=== PATIENT | male | born 1985 ===

== ENCOUNTER 2019-01-18 05:24 | Emergency (ER) | payer SELFPAY ==
[2019-01-18 05:35] VITALS: BP 124/77; PULSE 83; RESP 16; TEMP 98.7; O2SAT 98
--- NOTE | 2019-01-18 05:48 | ED PDOC ---
HPI: Psych/Substance Abuse Time Seen by Provider: 01/18/19 05:34 Chief Complaint (Nursing): Alcohol Ingestion Chief Complaint (Provider): Alcohol Ingestion History Per: Patient History/Exam Limitations: no limitations Onset/Duration Of Symptoms: Mins Current Symptoms Are (Timing): Better Additional Complaint(s): Patient is a 33 y/o male with no significant PMHx who had been drinking and passed out in a diner. EMS picked up the patient who is now wide awake. Patient admits to drinking. Patient states he [place] away and just wants to return home. Patient has not medical complaints at this time. PCP: None Past Medical History Reviewed: Historical Data, Nursing Documentation, Vital Signs Vital Signs: Last Vital Signs Temp 98.7 F 01/18/19 05:31 Pulse 83 01/18/19 05:31 Resp 16 01/18/19 05:31 BP 124/77 01/18/19 05:31 Pulse Ox 98 01/18/19 05:31 Primary Care Provider: FAMILY PROVIDER,NO - Medical History PMH: No Chronic Diseases - Surgical History Surgical History: No Surg Hx - Family History Family History: States: No Known Family Hx - Social History Alcohol: > 2 Drinks/Day - Allergies Allergies/Adverse Reactions: Allergies Allergy/AdvReac Type Severity Reaction Status Date / Time No Known Allergies Allergy Verified 01/18/19 05:34 Review of Systems ROS Statement: Except As Marked, All Systems Reviewed And Found Negative Physical Exam - Reviewed Nursing Documentation Reviewed: Yes Vital Signs Reviewed: Yes - Physical Exam Appears: Positive for: No Acute Distress Head Exam: Positive for: ATRAUMATIC, NORMAL INSPECTION, NORMOCEPHALIC Skin: Positive for: Normal Color, Warm, DRY Eye Exam: Positive for: EOMI, Normal appearance, PERRL Neck: Positive for: Normal, Painless ROM, Supple Cardiovascular/Chest: Positive for: Regular Rate, Rhythm. Negative for: Murmur Respiratory: Positive for: Normal Breath Sounds. Negative for: Respiratory Distress Gastrointestinal/Abdominal: Positive for: Normal Exam, Soft. Negative for: Tenderness Back: Positive for: Normal Inspection. Negative for: L CVA Tenderness, R CVA Tenderness Extremity: Positive for: Normal ROM. Negative for: Pedal Edema, Deformity Neurological/Psych: Positive for: Awake, Alert, Oriented (x3), Other (following commands). Negative for: Motor/Sensory Deficits - ECG O2 Sat by Pulse Oximetry: 98 (RA) Pulse Ox Interpretation: Normal Medical Decision Making Medical Decision Making: Time: 0535 Patient is no longer intoxicated. Patient is awake, alert, and oriented x3. No need for medical workup. Patient to be discharged home. Scribe Attestation: Documented by Kamaljit Whitt, acting as a scribe for Saundra Daily MD. Provider Scribe Attestation: All medical record entries made by the Scribe were at my direction and personally dictated by me. I have reviewed the chart and agree that the record accurately reflects my personal performance of the history, physical exam, medical decision making, and the department course for this patient. I have also personally directed, reviewed, and agree with the discharge instructions and disposition. Disposition - Clinical Impression Clinical Impression: Alcohol use - Disposition Disposition Time: 05:40 Condition: IMPROVED Additional Instructions: Do not consume drugs or alcohol. Drink excess water to prevent dehydration. Instructions: Alcohol Use - When Is Drinking a Problem? Forms: [employer] (Uzbek) Print Language: MACEDONIAN
== END 2019-01-18 06:00 | disposition home or self-care (01) ==
LOC: H.ER 05:24
DX: R10.10 Upper abdominal pain, unspecified (principal)